=== PATIENT | female | born 1975 | race Two or more races ===

== ENCOUNTER → 2025-08-25 | Emergency (ER) | payer BC ==
[~2025-08-25] VITALS: Ht 175.3 cm; Wt 61.2 kg
[~2025-08-25] MED LIST: CELEXA40 MG PO; ONDANSETRON HCL 2 MG/ML VIAL IM STA; ONDANSETRON HCL 2 MG/ML VIAL ONE; TRAMADOL HCL 50 MG TABLET PO STA
== END | disposition left against medical advice (07) ==
LOC: ER 23:08
DX: G89.11 Acute pain due to trauma (principal); M25.511 Pain in right shoulder; Z88.2 Allergy status to sulfonamides